=== PATIENT | male | born 1950 | race Two or more races ===

== ENCOUNTER 2025-06-21 12:16 | Inpatient (IN) | payer OTHER ==
[~2025-06-21] VITALS: Ht 157.5 cm; Wt 52.0 kg
--- NOTE | 2025-06-21 12:43 | ED.PDOC ---
History of Present Illness HPI Comments This is a 74 year-old male who presents to the ED with a chief complaint of mild epigastric abdominal pain with associated symptoms of weakness as of today. Patient reports being sent to the ED by his PCP after observed abnormal Hemoglobin levels. Patient additionally states that he had a stent placed X1 wee k ago, took nitroglycerin medication as prescribed, and is now experiencing weakness. Patient has no further complaints at this time and otherwise denies dizziness, fever, chills, chest pain, headache, or body pain. Chief Complaint: Abnormal LAB's Time Seen by MD: 12:36 Reviewed Notes: Medications, Allergies Allergies: Coded Allergies: NO KNOWN ALLERGIES (Unverified , 06/21/25) Information Source: Patient Mode of Arrival: Ambulatory Severity: Moderate Timing: Hours Duration: Since onset Past Medical History PAST MEDICAL HISTORY: Denies Surgical History: Denies all surgeries Family History Family History: Reviewed,noncontributory to illness, No family hx of Cancer, No family hx of DM, No family hx of Heart killian, No family hx of HTN, No family hx ofKidney killian, No family hx of Liver killian, No family hx of Lung killian, No family hx of Stroke Social History Smoker: Non-Smoker Alcohol: Denies ETOH Use Drugs: Denies Drug Use Lives In: Home Constitutional: reports: weakness; denies: chills, diaphoresis, fatigue, fever, malaise, sweats, others EENTM: denies: blurred vision, double vision, ear bleeding, ear discharge, ear drainage, ear pain, ear ringing, eye pain, eye redness, hearing loss, mouth pa in, mouth swelling, nasal discharge, nose bleeding, nose congestion, nose pain, photophobia, tearing, throat pain, throat swelling, voice changes, others Respiratory: denies: cough, hemoptysis, orthopnea, SOB at rest, shortness of breath, SOB with excertion, stridor, wheezing, others Cardiovascular: denies: chest pain, dizzy spells, diaphoresis, Dyspnea on exertion, edema, irregular heart beat, left arm pain, lightheadedness, palpitations, PND, syncope, others Gastrointestinal: reports: abdominal pain; denies: abdomen distended, blood streaked bowels, constipated, diarrhea, dysphagia, difficulty swallowing, hematemesis, melena, nausea, poor appetite, poor fluid intake, rectal bleeding, rectal pain, vomiting, others Genitourinary: denies: burning, dysuria, flank pain, frequency, hematuria, incontinence, penile discharge, penile sore, pain, testicle pain, testicle swelling, urgency, others Neurological: denies: dizziness, fainting, headache, left sided numbness, left sided weakness, numbness, paresthesia, pre-existing deficit, right sided numbness, right sided weakness, seizure, speech problems, tingling, tremors, weakness, others Musculoskeletal: denies: back pain, gout, joint pain, joint swelling, muscle pain, muscle stiffness, neck pain, others Integumetry: denies: bruises, change in color, change in hair/nails, dryness, laceration, lesions, lumps, rash, wounds, others Allergic/Immunocompromised: denies: Difficulty Healing, Frequent Infections, Hives, Itching, others Hematologic/Lymphatic: denies: anemia, blood clots, easy bleeding, easy bruising, swollen glands, others Endocrine: denies: excessive hunger, excessive sweating, excessive thirst, excessive urination, flushing, intolerance to cold, intolerance to heat, unexplained weight gain, unexplained weight loss, others Psychiatric: denies: anxiety, bipolar disorder, depression, hopeless, panic disorder, schizophrenia, sleepless, suicidal, others All Other Systems: Reviewed and Negative Physical Exam General Appearance: Moderate Distress HEENT: Normal ENT Inspection, Pharynx Normal, TMs Normal Neck: Full Range of Motion, Non-Tender, Normal, Normal Inspection Respiratory: Chest Non-Tender, Lungs Clear, No Accessory Muscle Use, No Respiratory Distress, Normal Breath Sounds Cardiovascular: No Edema, No JVD, No Murmur, No Gallop, Normal Peripheral Pulses, Regular Rate/Rhythm Breast Exam: Deferred Gastrointestinal: No Organomegaly, Non Tender, No Pulsatile Mass, Normal Bowel Sounds, Soft Genitalia: Deferred Pelvic: Deferred Rectal: Deferred Extremities: No calf tenderness, Normal capillary refill, Normal inspection, Normal range of motion, Non-tender, No pedal edema Musculoskeletal : Apperance: Normal Neurologic: Alert, associate principal II-XII nml as Tested, No Motor Deficits, Normal Affect, Normal Mood, No Sensory Deficits Cerebellar Function: Normal Reflexes: Normal Skin: Dry, Normal Color, Warm Peripheral Pulses: 3+ Radial (R), 3+ Radial (L) Lymphatic: No Adenopathy Was a procedure done? Was a procedure done?: No Differential Dx Considerations may include: Anxiety, Food Poisoning, Constipation X-Ray, Labs, Meds, VS Vital Signs Date Time Temp Pulse Resp B/P (MAP) Pulse Ox O2 Delivery O2 Flow Rate FiO2 06/21/25 12:18 97.6 81 16 113/60 100 97.6 Patient alert. Complaining of chest pain. Vitals stable. Answering questions. EKG reviewed does not show any acute changes. Possibly has a anemia. Explained to the patient. Continue monitoring. Images Reviewed?: Images reviewed and evaluated by me Time of 1ST Reevaluation: 13:22 Reevaluation 1ST: Unchanged Patient Education/Counseling: Diagnosis, Treatment Family Education/Counseling: Diagnosis, Treatment SEPSIS Sepsis Screen Date sepsis recognized/suspect: Jun 21, 2025 Time Sepsis recognized/suspect: 1221 Recent Procedure: No On Antibiotic Therapy: No Respiratory Rate >20: No Heart Rate >90: No Temp<36 C (96.8 F) or >38.3 C: No SBP <90 or MAP <65 mmHG: No New Acute Mental Status Change: No Is the patient on CPAP, BIPAP,: No Physician Orders Complete Blood Count (06/21/25 12:20) Basic Metabolic Panel (06/21/25 12:20) Vital Signs Date Time Temp Pulse Resp B/P (MAP) Pulse Ox O2 Delivery O2 Flow Rate FiO2 06/21/25 12:18 97.6 81 16 113/60 100 97.6 Departure 1 Departure Time of Disposition: 12:48 Impression: Primary Impression: Chest pain of unknown etiology Disposition: ADMITTED INPATIENT Admit to: Med Surg Condition: Guarded Critical Care Note Critical Care Time?: Yes (90 min-critical care time only) Stability Stability form required: No Heart Score Heart Score: Heart Score Response (Comments) Value History Slightly Suspicious 0 EKG N/A 0 Age >65 2 Risk Factors No known risk factors 0 Troponin Normal limit 0 Total 2 I personally scribed for EZRA PHAN MD ([email or web address]) on 06/21/25 at 12:42. Electronically submitted by Becki Guevara ([email or web address]). EZRA PHAN MD Jun 21, 2025 12:42
[2025-06-21 13:18] LABS: Hematocrit 27.5 % (41.0-53.0); Hemoglobin 9.3 g/dL (13.5-17.5); Mean Corpuscular Hemoglobin 33.4 pg (28.0-32.0); Mean Corpuscular Volume 98.9 fL (80.0-100.0); Nucleated Red Blood Cells % 0.0 %
[2025-06-21] MEDS: NITROGLYCERIN 0.4 MG SL TAB SL ONE (13:21)
[2025-06-21 13:26] LABS: Potassium 4.5 mmol/L (3.5-5.1); Sodium 141 mmol/L (136-145)
[2025-06-21 13:27] LABS: Anion Gap 8 (5-15); Carbon Dioxide 24 mmol/L (20-31)
[2025-06-21 13:28] LABS: Calcium 8.4 mg/dL (8.7-10.4); Chloride 109 mmol/L (98-107)
[2025-06-21 13:32] LABS: BUN/Creatinine Ratio 14.7 (10.0-20.0); Blood Urea Nitrogen 20 mg/dL (9-23); Glucose 99 mg/dL (74-106)
[2025-06-21 14:53] VITALS: PULSE 75; RESP 18; O2SAT 97
[2025-06-21] MEDS ORDERED: NITROGLYCERIN 0.4 MG SL TAB SL PRN (16:00)
[2025-06-21] MEDS ORDERED: ACETAMINOPHEN 325 MG TAB PO PRN (16:00)
[2025-06-21] MEDS ORDERED: MORPHINE SULFATE INJ 2 MG/ml SYRG IV PRN (16:00)
--- NOTE | 2025-06-21 16:11 | DVHHPRES ---
History of Present Illness Resident Creating Document: RUFINA PATEL RESIDENT History of Present Illness Ron Miller is a 74-year old male with past medical history of CAD s/p PTCA, hyperlipidemia who presented to the ED on being recommended by his PCP as he had low hemoglobin level of 7.8. The patient mentions he has had generalized body weakness for 1 week. He denies any weight loss, blood in the stool, dark stools, fever or chills. The patient mentions that he has a recent history of chest pain 1 week back for which he took nitroglycerin which resolved the symptoms. Past medical history: Hyperlipidemia, coronary artery disease Past surgical history: PTCA 5 years ago Social & Personal history: Lives at home with family Smokin pack-year smoking history, quit smoking 20 years back Alcohol: Rare consumption Drugs: Denies Allergies: No known allergies Cardiovascular: CAD Past Surgical History: Other Smoke: Quit ALCOHOL: rare Drugs: None Lives: with Family Review of Systems Review of Systems Patient seen and examined at bedside. Patient is alert and oriented to time, place person and responding to all questions. Patient mentions he has generalized body weakness. Eyes: No Pain, No Vision change, No Conjunctivae inflammation, No Eyelid inflammation, No Redness ENT: No Ear pain, No Ear discharge, No Nose pain, No Nose discharge, No Nose congestion, No Mouth pain, No Mouth swelling, No Throat pain, No Throat swelling Cardiovascular: No Chest Pain, No Palpitations, No Orthopnea, No Paroxysmal No Dyspnea, No Edema, No Lt Headedness Respiratory: No Cough, No Dry, No Shortness of breath, No SOB with exertion, No Wheezing, No Hemoptysis, No Pleuritic Pain, No Sputum Gastrointestinal: No Nausea, No Vomiting, No Abdominal Pain, No Diarrhea, No Constipation, No Melena, No Hematochezia Genitourinary: No Dysuria, No Frequency, No Incontinence, No Hematuria, No Retention Allergies: Coded Allergies: NO KNOWN ALLERGIES (Unverified , 06/21/25) Exam Vital Signs Vital Signs Date Time Temp Pulse Resp B/P (MAP) Pulse Ox O2 Delivery O2 Flow Rate FiO2 06/21/25 14:53 97.8 75 18 92/57 (69) 97 97.8 06/21/25 14:53 Room Air* 0 21 Exam General Appearance: Cooperative. Well developed. Well nourished. NAD Head Exam: Normal inspection,pale conjunctivae Neck Exam: Normal inspection. Non-tender. Normal alignment Pulmonary/Respiratory: Chest non-tender. Clear bilateral breath sounds, no crackles, no wheezing. Cardiovascular/Chest: Regular rate and rhythm. No murmurs. No JVD. Peripheral Pulses: 2+ Radial (R). 2+ Radial (L). 2+ Pedal (R). 2+ Pedal (L) Abdominal Exam: Normal bowel sounds. Soft. normal abdomen, no visible veins, Nontender. No hepatospenomegaly. No masses Ankle Exam: Negative ankle edema Lower extremities: Negative lower extremity edema Neuro/Mental Status: A&O x4. Coherent. Thoughts/Psych: Normal thought pattern. Appropriate mood and affect. Good judgement and insight Skin Exam: Normal inspection. Normal color. Warm. Dry Labs/Xrays Labs Test 06/21/25 14:07 06/21/25 12:59 Range/Units Troponin I High Sensitivity < 3 L </=54 ng/L White Blood Count 5.7 4.4-10.8 10^3/uL Red Blood Count 2.78 L 4.5-5.90 10^6/uL Hemoglobin 9.3 L 13.5-17.5 g/dL Hematocrit 27.5 L 41.0-53.0 % Mean Corpuscular Volume 98.9 80.0-100.0 fL Mean Corpuscular Hemoglobin 33.4 H 28.0-32.0 pg Mean Corpuscular Hemoglobin Concent 33.8 32.0-36.0 g/dL Red Cell Distribution Width 15.1 H 11.8-14.3 % Platelet Count 299 140-450 10^3/uL Mean Platelet Volume 6.8 L 6.9-10.8 fL Neutrophils (%) (Auto) 69.8 37.0-80.0 % Lymphocytes (%) (Auto) 21.1 10.0-50.0 % Monocytes (%) (Auto) 6.3 0.0-12.0 % Eosinophils (%) (Auto) 2.1 0.0-7.0 % Basophils (%) (Auto) 0.7 0.0-2.0 % Neutrophils # (Auto) 4.0 1.6-8.6 10 ^3/uL Lymphocytes # (Auto) 1.2 0.4-5.4 10 ^3/uL Monocytes # (Auto) 0.4 0-1.3 10 ^3/uL Eosinophils # (Auto) 0.1 0-0.8 10 ^3/uL Basophils # (Auto) 0 0-0.2 10 ^3/uL Nucleated Red Blood Cells 0.0 % Sodium Level 141 136-145 mmol/L Potassium Level 4.5 3.5-5.1 mmol/L Chloride Level 109 H 98-107 mmol/L Carbon Dioxide Level 24 20-31 mmol/L Anion Gap 8 5-15 Blood Urea Nitrogen 20 9-23 mg/dL Creatinine 1.36 H 0.700-1.30 mg/dL Glomerular Filtration Rate Calc 55 >90 mL/min BUN/Creatinine Ratio 14.7 10.0-20.0 Serum Glucose 99 74-106 mg/dL Calcium Level 8.4 L 8.7-10.4 mg/dL SEPSIS Sepsis Screen Date sepsis recognized/suspect: Jun 21, 2025 Time Sepsis recognized/suspect: 1452 Recent Procedure: No On Antibiotic Therapy: No Respiratory Rate >20: No Heart Rate >90: No Temp<36 C (96.8 F) or >38.3 C: No SBP <90 or MAP <65 mmHG: No New Acute Mental Status Change: No Is the patient on CPAP, BIPAP,: No Physician Orders Admit (06/21/25 15:56) Allergies (06/21/25 15:56) Code Status (06/21/25 15:56) Acetaminophen Tablet (Tylenol Tablet) (06/21/25 16:00) Enoxaparin Sodium (Lovenox) (06/22/25 10:00) Fall Risk Precautions In Place QSHIFT (06/21/25 15:56) Complete Blood Count (06/22/25 04:00) Comprehensive Metabolic Panel (06/22/25 04:00) Cardiac Diet-2gna,Lofat,Lochol (06/21/25 Dinner) Echo 2d Mode Cardiac Dop (06/21/25 15:56) Condition: Unstable (06/21/25 15:56) Nitroglycerin Sublingual (Ntrostat Subli (06/21/25 16:00) Morphine Sulfate Injection (06/21/25 16:00) Oxygen By Nasal Cannula (06/21/25 15:56) Stat Ekg For Chest Pain (06/21/25 15:56) Notify Md Of Changes From Base (06/21/25 15:56) Morphology Teacher For 24 Hours (06/21/25 15:56) Emergency Dysrhythmia Protocol (06/21/25 15:56) Rhythm Strips Once Every Shift (06/21/25 15:56) Iron Panel (06/21/25 16:00) Ferritin (06/21/25 16:00) Thyroid Stimulating Hormone (06/21/25 16:00) Urinalysis (06/21/25 16:00) B-Type Natriuretic Peptide (06/21/25 16:00) Chest Xray 1 View (06/21/25 16:00) NS (06/21/25 16:15) Aspirin Tablet (06/22/25 10:00) Aspirin Tablet (06/21/25 16:15) Clopidogrel Bisulfate (Plavix) (06/22/25 10:00) Atorvastatin (Lipitor) (06/21/25 22:00) Lipid Panel (06/21/25 16:09) Vitamin D, 25-Hydroxy (06/21/25 16:09) Vitamin B12 (06/21/25 16:09) Vital Signs Date Time Temp Pulse Resp B/P (MAP) Pulse Ox O2 Delivery O2 Flow Rate FiO2 06/21/25 14:53 97.8 75 18 92/57 (69) 97 97.8 06/21/25 14:53 75 18 97 Room Air* 0 21 06/21/25 14:31 76 16 98 Room Air 06/21/25 14:31 102/55 06/21/25 14:31 97.9 76 16 102/55 (71) 98 97.9 06/21/25 13:21 122/66 06/21/25 12:18 97.6 81 16 113/60 100 97.6 Laboratory Tests Test 06/21/25 12:59 White Blood Count 5.7 10^3/uL (4.4-10.8) Medications Medications Dose Ordered Sig/Nannette Route Start Time Stop Time Status Last Admin Dose Admin Aspirin 325 mg ONCE ONCE PO 06/21/25 13:00 06/21/25 13:01 DC 06/21/25 13:20 325 MG Nitroglycerin 0.4 mg ONCE ONCE SL 06/21/25 13:00 06/21/25 13:01 DC 06/21/25 13:21 0.4 MG Assessment/Plan Assessment/Plan # Acute normocytic anemia -Hb on admission is 9.3 -ordered iron panel, ferritin #SHELLEY, likely due to VMN -NS given at 60ml/hr -avoid nephrotoxic agents -monitor BMP # History of Coronary artery disease s/p PTCA -continue aspirin 81mg po daily -continue plavix 75mg po daily -ordered Echo # Hyperlipidemia -continue lipitor 40mg po hs # Vitamin D deficiciency -given Vitamin D 50,000 units daily for 1 week DVT prophylaxis: lovenox 40mg sc daily Goals of care: Full code, discussed for >16 minutes Plan discussed with Dr Barber Plan discussed with: Patient, Son My Orders Orders - RUFINA PATEL RESIDENT Procedure Category Date Status Time Admit ADMIT 06/21/25 Transmitted 15:56 Allergies SARA 06/21/25 In Process 15:56 Code Status CODE 06/21/25 Transmitted 15:56 Acetaminophen Tablet PHA 06/21/25 In Process (Tylenol Tablet) 16:00 Enoxaparin Sodium PHA 06/22/25 Logged (Lovenox) 10:00 Fall Risk Precautions SARA 06/21/[address] 15:56 Complete Blood Count LAB 06/22/25 Verified 04:00 Comprehensive LAB 06/22/25 Verified Metabolic Panel 04:00 Cardiac DIET 06/21/25 Transmitted Diet-2gna,Lofat,Lochol Dinner Echo 2d Mode Cardiac US 06/21/25 Logged DOP 15:56 Condition: Unstable [facility] 06/21/25 In Process 15:56 Nitroglycerin PHA 06/21/25 Logged Sublingual (Ntrostat 16:00 Morphine Sulfate PHA 06/21/25 Logged Injection 16:00 Oxygen By Nasal RT 06/21/25 Transmitted Cannula 15:56 Stat Ekg For Chest SARA 06/21/25 In Process Pain 15:56 Notify Of Changes [facility] 06/21/25 In Process From Base 15:56 Morphology Teacher For SARA 06/21/25 In Process 24 Hours 15:56 Emergency Dysrhythmia SARA 06/21/25 In Process Protocol 15:56 Rhythm Strips Once [facility] 06/21/25 In Process Every Shift 15:56 Iron Panel LAB 06/21/25 Logged 16:00 Ferritin LAB 06/21/25 Logged 16:00 Thyroid Stimulating LAB 06/21/25 Logged Hormone 16:00 Urinalysis LAB 06/21/25 Logged 16:00 B-Type Natriuretic LAB 06/21/25 Logged Peptide 16:00 Chest Xray 1 View XY 06/21/25 Logged 16:00 NS PHA 06/21/25 Transmitted 16:15 Aspirin Tablet PHA 06/22/25 Transmitted 10:00 Aspirin Tablet PHA 06/21/25 Transmitted 16:15 Clopidogrel Bisulfate PHA 06/22/25 Transmitted (Plavix) 10:00 Atorvastatin (Lipitor) PHA 06/21/25 Transmitted 22:00 Lipid Panel LAB 06/21/25 Transmitted 16:09 Vitamin D, 25-Hydroxy LAB 06/21/25 Transmitted 16:09 Vitamin B12 LAB 06/21/25 Transmitted 16:09 Date of Service: Jun 21, 2025 Billing Provider: CLEM BARBER MD Common Visit Codes: [id number] INP/OBS CARE (HIGH) RUFINA PATEL RESIDENT Jun 21, 2025 16:11
--- NOTE | 2025-06-21 16:45 | DVH ---
EXAM: XY CHEST XRAY 1 VIEW HISTORY: chest pain TECHNIQUE: 1 view of the chest COMPARISON: None FINDINGS/IMPRESSION: LUNGS: No pleural effusion, consolidation, or pneumothorax. MEDIASTINUM: Unremarkable. BONES: No acute osseous abnormality. OTHER: None.
[2025-06-21 16:47] LABS: Triglycerides 112 mg/dL (< 150)
[2025-06-21 16:49] LABS: Cholesterol 120 mg/dL (< 200); HDL Cholesterol 50 mg/dL (40-59); Iron 76.0 ug/dL (65-175)
[2025-06-21 16:52] LABS: Total Iron Binding Capacity 287.0 ug/dL (250-425)
[2025-06-21] MEDS: SODIUM CHLORIDE 0.9% 1,000 ML IV SCH (17:05)
[2025-06-21 17:11] LABS: Urine Protein, UAD Negative (Negative)
[2025-06-21 17:56] VITALS: BP 140/75; PULSE 59; RESP 18; TEMP 97.5; O2SAT 99
[2025-06-21 21:00] VITALS: BP 109/73; PULSE 75; RESP 15; TEMP 97.6; O2SAT 100
[2025-06-21] MEDS: ATORVASTATIN 20 MG TAB PO SCH (21:55)
[2025-06-22 01:00] VITALS: BP 115/78; PULSE 112; RESP 17; TEMP 97.9; O2SAT 97
[2025-06-22 05:00] VITALS: BP 134/76; PULSE 64; RESP 16; TEMP 97.7; O2SAT 98
[2025-06-22 07:39] LABS: Hematocrit 26.0 % (41.0-53.0); Hemoglobin 8.8 g/dL (13.5-17.5); Mean Corpuscular Hemoglobin 33.5 pg (28.0-32.0); Mean Corpuscular Volume 98.7 fL (80.0-100.0); Nucleated Red Blood Cells % 0.0 %
[2025-06-22 07:47] LABS: Alanine Aminotransferase 13 U/L (7-40); Albumin 3.6 g/dL (3.2-4.8); Alkaline Phosphatase 82 U/L (46-116); Anion Gap 10 (5-15); BUN/Creatinine Ratio 17.2 (10.0-20.0); Blood Urea Nitrogen 23 mg/dL (9-23); Carbon Dioxide 23 mmol/L (20-31); Glucose 79 mg/dL (74-106); Potassium 4.3 mmol/L (3.5-5.1); Sodium 142 mmol/L (136-145); Total Protein 5.9 g/dL (5.7-8.2)
[2025-06-22 07:48] LABS: Bilirubin, Total 0.5 mg/dL (0.2-1.0)
[2025-06-22 07:49] LABS: Calcium 8.0 mg/dL (8.7-10.4); Chloride 109 mmol/L (98-107)
[2025-06-22 08:41] VITALS: BP 132/68; PULSE 56; RESP 18; TEMP 98.1; O2SAT 98
[2025-06-22] MEDS: ERGOCALCIFEROL 50,000 UNIT(1.25MG) CAP PO SCH (10:21)
[2025-06-22] MEDS: CLOPIDOGREL BISULFATE 75 MG TAB PO SCH (10:21)
[2025-06-22] MEDS: ENOXAPARIN SOD 40 MG/0.4 ML SYRINGE SC SCH (10:22)
[2025-06-22 13:00] VITALS: BP 123/76; PULSE 58; RESP 18; TEMP 98; O2SAT 99
--- NOTE | 2025-06-22 13:56 | DVHSR ---
APPROVED REPORT EXAM: Two-dimensional and M-mode echocardiogram with Doppler and color Doppler. Blood Pressure: 132/68 mmHg INDICATION Chest Pain RISK FACTORS Height: 5' 2", Weight: 119 DIMENSIONS LVDd4.5 (3.8-5.7cm)LA (2D)3.7 (1.9-4.0cm)Aortic Root3.5 (2.0-3.7cm) LVDs3.3 (2.5-4.0cm)LA (MM) (1.9-4.0cm)Aortic Cusp Exc1.7 (1.5-2.0cm) EF (%) 55.0 (55-70%)Rt. Atrium3.8 (1.9-4.0cm)Asc. Aorta cm IVSd1.0 (0.7-1.1cm)RV (D) (1.8-2.4cm) PWd0.9 (0.7-1.1cm) Mitral Valve MitralMitral Stenosis E wave1.00m/sMV Mean GR.mmHg A wave1.20m/sMV Peak GR.mmHg E/A ratio0.82D MVAcm2 Aortic Valve Aortic ValveAortic Stenosis V11.00m/Debra Mean GR.3mmHg V21.30m/Debra Peak GR.7mmHg LVOT Diameter2.3 (1.8-2.4cm)Doppler AVA3.19cm2 Pulmonic Valve V20.60m/s Tricuspid Valve TR Velocity2.50m/s [id number] Conclusion lvef 65% normal rv function left atrium enlarged moderaet no severe valve abnormalities noted mild to moderate tricupsid regurg
--- NOTE | 2025-06-22 15:33 | DVHPNRES ---
Progress Note Date Seen: Jun 22, 2025 Resident Creating Document: RUFINA PATEL RESIDENT Medical Necessity Reason Pt with a Central, PICC or Fol: No Subjective Review of Systems Ron Miller is a 74-year old male with past medical history of CAD s/p PTCA, hyperlipidemia who presented to the ED on being recommended by his PCP as he had low hemoglobin level of 7.8. The patient mentions he has had generalized body weakness for 1 week. He denies any weight loss, blood in the stool, dark stools, fever or chills. The patient mentions that he has a recent history of chest pain 1 week back for which he took nitroglycerin which resolved the symptoms. Past medical history: Hyperlipidemia, coronary artery disease Past surgical history: PTCA 5 years ago Social & Personal history: Lives at home with family Smokin pack-year smoking history, quit smoking 20 years back Alcohol: Rare consumption Drugs: Denies Allergies: No known allergies Cardiovascular: CAD Past Surgical History: Other Smoke: Quit ALCOHOL: rare Drugs: None Lives: with Family Patient seen and examined at bedside. Patient is alert and oriented to time, place person and responding to all questions. Patient mentions he has generalized body weakness. Eyes: No Pain, No Vision change, No Conjunctivae inflammation, No Eyelid inflammation, No Redness ENT: No Ear pain, No Ear discharge, No Nose pain, No Nose discharge, No Nose congestion, No Mouth pain, No Mouth swelling, No Throat pain, No Throat swelling Cardiovascular: No Chest Pain, No Palpitations, No Orthopnea, No Paroxysmal No Dyspnea, No Edema, No Lt Headedness Respiratory: No Cough, No Dry, No Shortness of breath, No SOB with exertion, No Wheezing, No Hemoptysis, No Pleuritic Pain, No Sputum Gastrointestinal: No Nausea, No Vomiting, No Abdominal Pain, No Diarrhea, No Constipation, No Melena, No Hematochezia Genitourinary: No Dysuria, No Frequency, No Incontinence, No Hematuria, No Retention Allergies: Coded Allergies: NO KNOWN ALLERGIES (Unverified , 06/21/25) 06/22/25- patient was seen at bedside today. Labs and charts were reviewed. His hemoglobin today was 8.8. Creatinine improved from 1.36 yesterday to 1.34 today. We will continue to give NS at 60 mL/hour and monitor hemoglobin tomorrow morning. Possible discharge for tomorrow was discussed with the patient. Objective vital signs Vital Sign Date Time Temp Pulse Resp B/P (MAP) Pulse Ox O2 Delivery O2 Flow Rate FiO2 06/22/25 13:00 98.0 58 18 123/76 (92) 99 98.0 06/21/25 16:46 Room Air* 0 21 Total Intake and Output 06/21/25 06/21/25 06/22/25 15:00 23:00 07:00 Intake Total 400 ml 0 ml Balance 400 ml 0 ml medications Current Medications Medications Dose Ordered Sig/Nannette Route Start Time Stop Time Status Last Admin Dose Admin Acetaminophen 325 mg Q4HP PRN PO 06/21/25 16:00 Enoxaparin Sodium 40 mg DAILY SC 06/22/25 10:00 06/22/25 10:22 40 MG Nitroglycerin 0.4 mg Q5MINP PRN SL 06/21/25 16:00 Morphine Sulfate 2 mg Q30M PRN IV 06/21/25 16:00 Sodium Chloride 1,000 ml @ 60 mls/hr [id number] IV 06/21/25 16:15 06/22/25 10:21 60 MLS/HR Aspirin 81 mg DAILY PO 06/22/25 10:00 06/22/25 10:21 81 MG Clopidogrel Bisulfate 75 mg DAILY PO 06/22/25 10:00 06/22/25 10:21 75 MG Atorvastatin Calcium 40 mg HS PO 06/21/25 22:00 06/21/25 21:55 40 MG Ergocalciferol 50,000 unit Q7D PO 06/22/25 08:30 06/22/25 10:21 50,000 UNIT Examination General Appearance: Cooperative. Well developed. Well nourished. NAD Head Exam: Normal inspection,pale conjunctivae Neck Exam: Normal inspection. Non-tender. Normal alignment Pulmonary/Respiratory: Chest non-tender. Clear bilateral breath sounds, no crackles, no wheezing. Cardiovascular/Chest: Regular rate and rhythm. No murmurs. No JVD. Peripheral Pulses: 2+ Radial (R). 2+ Radial (L). 2+ Pedal (R). 2+ Pedal (L) Abdominal Exam: Normal bowel sounds. Soft. normal abdomen, no visible veins, Nontender. No hepatospenomegaly. No masses Ankle Exam: Negative ankle edema Lower extremities: Negative lower extremity edema Neuro/Mental Status: A&O x4. Coherent. Thoughts/Psych: Normal thought pattern. Appropriate mood and affect. Good judgement and insight Skin Exam: Normal inspection. Normal color. Warm. Dry laboratory and microbiology Laboratory Tests 06/22/25 05:07 Test 06/22/25 05:07 Range/Units Serum Glucose 79 74-106 mg/dL Labs and/or images reviewed: Labs reviewed by me, Image(s) reviewed by me Problem List/Assessment/Plan Problem List/Assessment/Plan # Acute normocytic anemia -Hb today was 8.8 -iron panel, ferritin are within normal limits -monitor hemoglobin #SHELLEY, likely due to VMN -NS given at 60ml/hr -avoid nephrotoxic agents -monitor BMP # History of Coronary artery disease s/p PTCA -continue aspirin 81mg po daily -continue plavix 75mg po daily -Echo LVEF 65% normal rv function left atrium enlarged moderately no severe valve abnormalities noted mild to moderate tricupsid regurg # Hyperlipidemia -continue lipitor 40mg po hs # Vitamin D deficiciency -given Vitamin D 50,000 units daily for 1 week DVT prophylaxis: lovenox 40mg sc daily Goals of care: Full code, discussed for >16 minutes Plan discussed with Dr Perkins Plan discussed with: Patient My Orders My Orders Orders - RUFINA PATEL RESIDENT Procedure Category Date Status Time Admit ADMIT 06/21/25 Transmitted 15:56 Allergies SARA 06/21/25 In Process 15:56 Code Status CODE 06/21/25 Transmitted 15:56 Acetaminophen Tablet PHA 06/21/25 In Process (Tylenol Tablet) 16:00 Enoxaparin Sodium PHA 06/22/25 In Process (Lovenox) 10:00 Fall Risk Precautions SARA 06/21/[address] 15:56 Cardiac DIET 06/21/25 Transmitted Diet-2gna,Lofat,Lochol Dinner Condition: Unstable SARA 06/21/25 In Process 15:56 Nitroglycerin PHA 06/21/25 In Process Sublingual (Ntrostat 16:00 Morphine Sulfate PHA 06/21/25 In Process Injection 16:00 Oxygen By Nasal RT 06/21/25 Transmitted Cannula 15:56 Stat Ekg For Chest SARA 06/21/25 In Process Pain 15:56 Notify Of Changes SARA 06/21/25 In Process From Base 15:56 Gin Operator For SARA 06/21/25 In Process 24 Hours 15:56 Emergency Dysrhythmia SARA 06/21/25 In Process Protocol 15:56 Rhythm Strips Once SARA 06/21/25 In Process Every Shift 15:56 Chest Xray 1 View XY 06/21/25 Resulted 16:00 Sodium Chloride 0.9% PHA 06/21/25 In Process 16:15 Aspirin Tablet PHA 06/22/25 In Process 10:00 Clopidogrel Bisulfate PHA 06/22/25 In Process (Plavix) 10:00 Atorvastatin (Lipitor) PHA 06/21/25 In Process 22:00 Echo 2d Mode Cardiac US 06/22/25 Resulted DOP 15:56 Date of Service: Jun 22, 2025 Billing Provider: AMANDA PERKINS MD Common Visit Codes: [id number] INP/OBS CARE(HIGH) Date of Service: Jun 22, 2025 Billing Provider: AMANDA PERKINS MD Common Visit Codes: [id number] INP/OBS CARE(HIGH) RUFINA PATEL RESIDENT Jun 22, 2025 15:33 AMANDA PERKINS MD Jun 22, 2025 22:48
[2025-06-22 16:39] VITALS: BP 104/104; PULSE 77; RESP 18; TEMP 98.7; O2SAT 98
[2025-06-22 21:00] VITALS: BP 96/60; PULSE 68; RESP 18; TEMP 98.4; O2SAT 98
[2025-06-22] MEDS: DOCUSATE SOD 100 MG CAP PO PRN (21:10)
[2025-06-23] VITALS (7 sets, daily range): BP systolic 94–135; BP diastolic 58–85; PULSE 57–89; RESP 18–20; TEMP 98–98.6; O2SAT 96–99
[2025-06-23 06:39] LABS: Hematocrit 27.0 % (41.0-53.0); Hemoglobin 9.2 g/dL (13.5-17.5); Mean Corpuscular Hemoglobin 33.9 pg (28.0-32.0); Mean Corpuscular Volume 99.1 fL (80.0-100.0); Nucleated Red Blood Cells % 0.1 %
[2025-06-23 06:44] LABS: Anion Gap 8 (5-15); Carbon Dioxide 24 mmol/L (20-31); Potassium 4.5 mmol/L (3.5-5.1); Sodium 141 mmol/L (136-145)
[2025-06-23 06:50] LABS: BUN/Creatinine Ratio 18.0 (10.0-20.0); Blood Urea Nitrogen 20 mg/dL (9-23); Glucose 91 mg/dL (74-106)
[2025-06-23 06:51] LABS: Calcium 8.4 mg/dL (8.7-10.4); Chloride 109 mmol/L (98-107)
[2025-06-23] MEDS: POLYETHYLENE GLYCOL 17 GM PWDR PO ONE (07:01)
--- NOTE | 2025-06-23 14:22 | DVHPNRES ---
Progress Note Date Seen: Jun 23, 2025 Resident Creating Document: BLAYNE SWEENEY RESIDENT Has the PT tested + for MRSA If YES, has PT been informed?: No Medical Necessity Reason Pt with a Central, PICC or Fol: No Subjective Review of Systems Ron Miller is a 74-year old male with past medical history of CAD s/p PTCA, hyperlipidemia who presented to the ED on being recommended by his PCP as he had low hemoglobin level of 7.8. The patient mentions he has had generalized body weakness for 1 week. He denies any weight loss, blood in the stool, dark stools, fever or chills. The patient mentions that he has a recent history of chest pain 1 week back for which he took nitroglycerin which resolved the symptoms. Patient seen and examined at bedside. Patient denies fever/chills, abdominal tenderness, vomiting or any possible source of bleeding at this time. Hemoglobin has been stable throughout hospitalization, today is 9.2. Iron panel and ferritin in the normal range but stool occult test came back positive. GI was consulted for possible colonoscopy since the patient has been having acute on chronic anemia. GI consult was placed. Otherwise patient is grossly well overall. ROS Constitutional: Denies weight loss, fever and chills. HEENT: Denies changes in vision and hearing. Respiratory: Denies shortness of breath and cough Cardiovascular: Denies chest discomfort or palpitations GI: Denies abdominal pain, nausea, vomiting and diarrhea. : Denies dysuria and urinary frequency. Musculoskeletal: Denies myalgias and joint pain Skin: Denies rash and pruritus. Neurological: Denies dizziness, headache, vision or hearing problems Objective vital signs Vital Sign Date Time Temp Pulse Resp B/P (MAP) Pulse Ox O2 Delivery O2 Flow Rate FiO2 06/23/25 13:17 98.1 73 18 103/60 (74) 99 98.1 06/21/25 16:46 Room Air* 0 21 Total Intake and Output 06/22/25 06/22/25 06/23/25 15:00 23:00 07:00 Intake Total 400 ml 1280 ml 600 ml Balance 400 ml 1280 ml 600 ml medications Current Medications Medications Dose Ordered Sig/Nannette Route Start Time Stop Time Status Last Admin Dose Admin Acetaminophen 325 mg Q4HP PRN PO 06/21/25 16:00 Nitroglycerin 0.4 mg Q5MINP PRN SL 10/24/25 16:00 Morphine Sulfate 2 mg Q30M PRN IV 06/21/25 16:00 Sodium Chloride 1,000 ml @ 60 mls/hr [id number] IV 06/21/25 16:15 06/23/25 01:35 60 MLS/HR Aspirin 81 mg DAILY PO 06/22/25 10:00 06/23/25 09:12 81 MG Clopidogrel Bisulfate 75 mg DAILY PO 06/22/25 10:00 06/23/25 09:11 75 MG Atorvastatin Calcium 40 mg HS PO 06/21/25 22:00 06/22/25 20:30 40 MG Ergocalciferol 50,000 unit Q7D PO 06/22/25 08:30 06/22/25 10:21 50,000 UNIT Docusate Sodium 100 mg BIDPRN PRN PO 06/22/25 21:00 06/23/25 09:12 100 MG Examination Physical Examination General: Patient alert and oriented in person, place and time. Patient following commands. HEENT: Normocephalic, atraumatic, moist mucous membranes Respiratory/pulmonary: Clear lungs bilaterally, no associated crackles or wheezes. Cardiovascular: Normal heart sounds S1 and S2 with no associated murmurs Abdomen: Abdomen nondistended, there is no pain to palpation in any of the abdominal quadrants, no palpable masses. Extremities: There is no peripheral edema present at the lower extremities. Skin: No rashes or pruritus, there is no sacral edema present at this time. Neurological: Intact cranial nerves with no focal neurologic deficits laboratory and microbiology Laboratory Tests 06/23/25 05:25 Test 06/23/25 05:25 Range/Units Serum Glucose 91 74-106 mg/dL Problem List/Assessment/Plan Problem List/Assessment/Plan Assessment/Plan Acute normocytic anemia -Hb today was 9.3 -iron panel, ferritin are within normal limits -monitor hemoglobin -Stool occult came back positive -GI consult placed SHELLEY, likely due to VMN -NS given at 60ml/hr -Cr improving -avoid nephrotoxic agents -monitor BMP History of Coronary artery disease s/p PTCA -continue aspirin 81mg po daily -continue plavix 75mg po daily -Echo LVEF 65% normal rv function left atrium enlarged moderately no severe valve abnormalities noted mild to moderate tricupsid regurg Hyperlipidemia -continue lipitor 40mg po hs Vitamin D deficiciency -given Vitamin D 50,000 units daily for 1 week DVT prophylaxis: lovenox 40mg sc daily Goals of care discussed with the patient at bedside for 21 min, FULL CODE Plan discussed with Dr Perkins Plan discussed with: Patient My Orders My Orders Orders - BLAYNE SWEENEY Procedure Category Date Status Time * [facility] [employer] CONS 06/23/25 Transmitted 12:33 Date of Service: Jun 23, 2025 Billing Provider: AMANDA PERKINS MD Common Visit Codes: [id number] INP/OBS CARE(HIGH) BLAYNE SWEENEY Jun 23, 2025 14:21 AMANDA PERKINS MD Jun 23, 2025 23:31
--- NOTE | 2025-06-23 15:52 | DVHINCON2 ---
Date of service: Jun 23, 2025 Referring Physician Demetrius Reason for Consultation Occult blood positive anemia History of Present Illness The patient is a 74-year-old male with a past medical history significant for hyperlipidemia, coronary artery disease, prior history of PTCA, who was admitted with generalized weakness and body aches, referred to the emergency room by his primary care physician who noted a decreased hemoglobin. Patient was occult blood positive. Patient denies any melena hematochezia or hematemesis. Denies any abdominal pain dysphagia or odynophagia. GI consultation was warranted for evaluation for positive EGD format and colonoscopy. Past Medical History As above Past Surgical History Denies Family History: Patient reports no known family medical history. Family History Denies any GI diseases Social History Prior tobacco use No alcohol abuse No drug use Allergies: Coded Allergies: NO KNOWN ALLERGIES (Unverified , 06/21/25) Current Medications Current Medications Medications (Trade) Dose Ordered Sig/Nannette Route PRN Reason Start Time Stop Time Status Last Admin Docusate Sodium (Colace Capsule) 100 mg BIDPRN PRN PO FOR CONSTIPATION 06/22/25 21:00 06/23/25 09:12 Review of Systems Review of systems is limited given the language gap Patient has a history of prior PTCA known history of CAD Patient has anemia He has weakness but denies fevers or chills Denies chest pain or shortness of breath Denies diabetes Has hyperlipidemia Denies stroke or seizure Denies depression anxiety or psychosis Vital Signs Vital Signs Date Time Temp Pulse Resp B/P (MAP) Pulse Ox O2 Delivery O2 Flow Rate FiO2 06/23/25 13:17 98.1 73 18 103/60 (74) 99 98.1 06/21/25 16:46 Room Air* 0 21 Physical Exam General: Thin elderly male sitting up in bed HEENT: NC/AT EOMI PERRLA O/P clear, no JVD or cervical lymphadenopathy, no scleral icterus Heart: Regular rate and rhythm, no murmurs rubs or gallops Lungs: Clear to auscultation bilaterally, no wheezes rales or rhonchi Abdomen: Soft, nontender, nondistended, no organomegaly, normoactive bowel sounds Extremity: No clubbing cyanosis or edema, no rashes or bruises Neuro: Cranial nerves 2-12 grossly intact, moves all four extremities, no asterixis Labs/Diagnostic Data Labs Test 06/23/25 11:15 06/23/25 05:25 06/22/25 05:07 06/21/25 16:14 Range/Units Stool Occult Blood Positive Negative Stool Occult Blood Sample #3 Negative White Blood Count 5.5 4.4-10.8 10^3/uL Red Blood Count 2.72 L 4.5-5.90 10^6/uL Hemoglobin 9.2 L 13.5-17.5 g/dL Hematocrit 27.0 L 41.0-53.0 % Mean Corpuscular Volume 99.1 80.0-100.0 fL Mean Corpuscular Hemoglobin 33.9 H 28.0-32.0 pg Mean Corpuscular Hemoglobin Concent 34.2 32.0-36.0 g/dL Red Cell Distribution Width 15.0 H 11.8-14.3 % Platelet Count 257 140-450 10^3/uL Mean Platelet Volume 7.0 6.9-10.8 fL Neutrophils (%) (Auto) 69.3 37.0-80.0 % Lymphocytes (%) (Auto) 20.1 10.0-50.0 % Monocytes (%) (Auto) 6.6 0.0-12.0 % Eosinophils (%) (Auto) 3.2 0.0-7.0 % Basophils (%) (Auto) 0.8 0.0-2.0 % Neutrophils # (Auto) 3.8 1.6-8.6 10 ^3/uL Lymphocytes # (Auto) 1.1 0.4-5.4 10 ^3/uL Monocytes # (Auto) 0.4 0-1.3 10 ^3/uL Eosinophils # (Auto) 0.2 0-0.8 10 ^3/uL Basophils # (Auto) 0 0-0.2 10 ^3/uL Nucleated Red Blood Cells 0.1 % Sodium Level 141 136-145 mmol/L Potassium Level 4.5 3.5-5.1 mmol/L Chloride Level 109 H 98-107 mmol/L Carbon Dioxide Level 24 20-31 mmol/L Anion Gap 8 5-15 Blood Urea Nitrogen 20 9-23 mg/dL Creatinine 1.11 0.700-1.30 mg/dL Glomerular Filtration Rate Calc 71 >90 mL/min BUN/Creatinine Ratio 18.0 10.0-20.0 Serum Glucose 91 74-106 mg/dL Calcium Level 8.4 L 8.7-10.4 mg/dL Phosphorus Level 3.2 2.4-5.1 mg/dL Total Bilirubin 0.5 0.2-1.0 mg/dL Aspartate Amino Transferase (AST) 17 13-40 U/L Alanine Aminotransferase (ALT) 13 7-40 U/L Alkaline Phosphatase 82 46-116 U/L Lactate Dehydrogenase 164 120-246 U/L Total Protein 5.9 5.7-8.2 g/dL Albumin 3.6 3.2-4.8 g/dL Parathyroid Hormone (Intact) 67.3 18.4-80.1 pg/mL Urine Color Yellow Yellow Urine Clarity Clear Clear Urine pH 5.5 5.0-9.0 Urine Specific [place] 1.024 1.001-1.035 Urine Protein Negative Negative Urine Ketones Negative Negative Urine Blood Negative Negative /uL Urine Nitrite Negative Negative Urine Bilirubin Negative Negative Urine Urobilinogen Normal Negative mg/dL Urine Leukocyte Esterase Negative Negative /uL Urine RBC 1 0 - 3 /hpf Urine Microscopic WBC 1 0-3 /HPF Urine Squamous Epithelial Cells Few <5 /hpf Urine Bacteria None seen None Seen /hpf Urine Mucus Few None Seen Urine Glucose Normal Normal mg/dL Test 06/21/25 14:07 06/21/25 12:59 Range/Units Troponin I High Sensitivity < 3 L </=54 ng/L Iron Level 76 65-175 ug/dL Total Iron Binding Capacity 287 250-425 ug/dL Percent Iron Saturation 26.5 20-55 % Ferritin 55.6 22-322 ng/mL B-Type Natriuretic Peptide 103.29 0-100 pg/mL Triglycerides Level 112 < 150 mg/dL Cholesterol Level 120 < 200 mg/dL LDL Cholesterol 44 < 100 mg/dL HDL Cholesterol 50 40-59 mg/dL Vitamin B12 Level 454 211-911 pg/mL Vitamin D 25-Hydroxy 28.0 L 30.0-100 ng/mL Thyroid Stimulating Hormone (TSH) 1.24 0.55-4.78 uIU/mL Assessment Normocytic anemia Occult blood positive stool Chronic kidney disease History of coronary artery disease Plan/Recommendation 1. Follow H&H and transfuse 2. Patient will need EGD format and colonoscopy following cardiac clearance 3. I will be signing off to Dr. Christina 4. Consider multifactorial anemia given the patient's chronic renal disease Plan discussed with: Patient BARTOLO KENDALL MD Jun 23, 2025 15:52
[2025-06-24 05:00] VITALS: BP 111/72; PULSE 63; RESP 16; TEMP 97.2; O2SAT 98
[2025-06-24 06:29] LABS: Hematocrit 28.1 % (41.0-53.0); Hemoglobin 9.5 g/dL (13.5-17.5); Mean Corpuscular Hemoglobin 33.4 pg (28.0-32.0); Mean Corpuscular Volume 99.3 fL (80.0-100.0); Nucleated Red Blood Cells % 0.0 %
[2025-06-24 06:46] LABS: Potassium 4.8 mmol/L (3.5-5.1); Sodium 143 mmol/L (136-145)
[2025-06-24 06:47] LABS: Anion Gap 10 (5-15); Carbon Dioxide 24 mmol/L (20-31)
[2025-06-24 06:50] LABS: Calcium 8.5 mg/dL (8.7-10.4); Chloride 109 mmol/L (98-107)
[2025-06-24 06:53] LABS: BUN/Creatinine Ratio 16.4 (10.0-20.0); Blood Urea Nitrogen 20 mg/dL (9-23); Glucose 91 mg/dL (74-106)
--- NOTE | 2025-06-24 08:29 | DVHPNRES ---
Progress Note Date Seen: Jun 24, 2025 Resident Creating Document: RUFINA PATEL RESIDENT Has the PT tested + for MRSA If YES, has PT been informed?: No Medical Necessity Reason Pt with a Central, PICC or Fol: No Subjective Review of Systems Ron Miller is a 74-year old male with past medical history of CAD s/p PTCA, hyperlipidemia who presented to the ED on being recommended by his PCP as he had low hemoglobin level of 7.8. The patient mentions he has had generalized body weakness for 1 week. He denies any weight loss, blood in the stool, dark stools, fever or chills. The patient mentions that he has a recent history of chest pain 1 week back for which he took nitroglycerin which resolved the symptoms. Past medical history: Hyperlipidemia, coronary artery disease Past surgical history: PTCA 5 years ago Social & Personal history: Lives at home with family Smokin pack-year smoking history, quit smoking 20 years back Alcohol: Rare consumption Drugs: Denies Patient seen and examined at bedside. Patient is alert and oriented to time, place person and responding to all questions. Patient mentions he has generalized body weakness. Eyes: No Pain, No Vision change, No Conjunctivae inflammation, No Eyelid inflammation, No Redness ENT: No Ear pain, No Ear discharge, No Nose pain, No Nose discharge, No Nose congestion, No Mouth pain, No Mouth swelling, No Throat pain, No Throat swelling Cardiovascular: No Chest Pain, No Palpitations, No Orthopnea, No Paroxysmal No Dyspnea, No Edema, No Lt Headedness Respiratory: No Cough, No Dry, No Shortness of breath, No SOB with exertion, No Wheezing, No Hemoptysis, No Pleuritic Pain, No Sputum Gastrointestinal: No Nausea, No Vomiting, No Abdominal Pain, No Diarrhea, No Constipation, No Melena, No Hematochezia Genitourinary: No Dysuria, No Frequency, No Incontinence, No Hematuria, No Retention Allergies: Coded Allergies: NO KNOWN ALLERGIES (Unverified , 06/21/25) 06/22/25- Patient was seen at bedside today. Labs and charts were reviewed. His hemoglobin today was 8.8. Creatinine improved from 1.36 yesterday to 1.34 today. We will continue to give NS at 60 mL/hour and monitor hemoglobin tomorrow morning. Possible discharge for tomorrow was discussed with the patient. 06/23/25-Patient seen and examined at bedside. Patient denies fever/chills, abdominal tenderness, vomiting or any possible source of bleeding at this time. Hemoglobin has been stable throughout hospitalization, today is 9.2. Iron panel and ferritin in the normal range but stool occult test came back positive. GI was consulted for possible colonoscopy since the patient has been having acute on chronic anemia. GI consult was placed. Otherwise patient is grossly well overall. 06/24/25- patient was seen and examined at bedside. Patient denies any abdominal pain vomiting or diarrhea. Hemoglobin today is 9.5. Patient underwent EGD today and was found to have mild gastritis and gastropathy otherwise normal examination up to the 2nd part of the duodenum with no active bleeding but increased oozing from biopsy sites and scope pressure areas. Patient was put on Protonix 40 mg b.i.d. IV and Carafate 1 g p.o. 4 times daily, and clear liquid diet. Patient was recommended colonoscopy for evaluation, tentatively on 06/26/2025. Objective vital signs Vital Sign Date Time Temp Pulse Resp B/P (MAP) Pulse Ox O2 Delivery O2 Flow Rate FiO2 06/24/25 05:00 97.2 63 16 111/72 (85) 98 97.2 Total Intake and Output 06/23/25 06/23/25 06/24/25 15:00 23:00 07:00 Intake Total 240 ml 560 ml 500 ml Balance 240 ml 560 ml 500 ml medications Current Medications Medications Dose Ordered Sig/Nannette Route Start Time Stop Time Status Last Admin Dose Admin Acetaminophen 325 mg Q4HP PRN PO 06/21/25 16:00 Nitroglycerin 0.4 mg Q5MINP PRN SL 06/21/25 16:00 Morphine Sulfate 2 mg Q30M PRN IV 06/21/25 16:00 Sodium Chloride 1,000 ml @ 60 mls/hr [id number] IV 06/21/25 16:15 06/23/25 18:34 60 MLS/HR Aspirin 81 mg DAILY PO 06/22/25 10:00 06/23/25 09:12 81 MG Clopidogrel Bisulfate 75 mg DAILY PO 06/22/25 10:00 06/23/25 09:11 75 MG Atorvastatin Calcium 40 mg HS PO 06/21/25 22:00 06/23/25 21:16 40 MG Ergocalciferol 50,000 unit Q7D PO 06/22/25 08:30 06/22/25 10:21 50,000 UNIT Docusate Sodium 100 mg BIDPRN PRN PO 06/22/25 21:00 06/23/25 09:12 100 MG Examination General Appearance: Cooperative. Well developed. Well nourished. NAD Head Exam: Normal inspection,pale conjunctivae Neck Exam: Normal inspection. Non-tender. Normal alignment Pulmonary/Respiratory: Chest non-tender. Clear bilateral breath sounds, no crackles, no wheezing. Cardiovascular/Chest: Regular rate and rhythm. No murmurs. No JVD. Peripheral Pulses: 2+ Radial (R). 2+ Radial (L). 2+ Pedal (R). 2+ Pedal (L) Abdominal Exam: Normal bowel sounds. Soft. normal abdomen, no visible veins, Nontender. No hepatospenomegaly. No masses Ankle Exam: Negative ankle edema Lower extremities: Negative lower extremity edema Neuro/Mental Status: A&O x4. Coherent. Thoughts/Psych: Normal thought pattern. Appropriate mood and affect. Good judgement and insight Skin Exam: Normal inspection. Normal color. Warm. Dry laboratory and microbiology Laboratory Tests 06/24/25 04:48 Test 06/24/25 04:48 Range/Units Serum Glucose 91 74-106 mg/dL Labs and/or images reviewed: Labs reviewed by me, Image(s) reviewed by me Problem List/Assessment/Plan Problem List/Assessment/Plan Acute normocytic anemia -Hb today was 9.5 -iron panel, ferritin are within normal limits -monitor hemoglobin -Stool occult came back positive -GI consult placed -EGD done on 06/24/25-mild gastritis and gastropathy otherwise normal examination up to the 2nd part of the duodenum with no active bleeding but increased oozing from biopsy sites and scope pressure areas. -started on protonix 40mg iv bid and carafate 1gm po qid SHELLEY, likely due to VMN -NS given at 60ml/hr -Cr improving -avoid nephrotoxic agents -monitor BMP History of Coronary artery disease s/p PTCA -continue aspirin 81mg po daily -continue plavix 75mg po daily -Echo LVEF 65% normal rv function left atrium enlarged moderately no severe valve abnormalities noted mild to moderate tricupsid regurg Hyperlipidemia -continue lipitor 40mg po hs Vitamin D deficiciency -given Vitamin D 50,000 units daily for 1 week DVT prophylaxis: lovenox 40mg sc daily Goals of care discussed with the patient at bedside for 21 min, FULL CODE Plan discussed with Dr Perkins Plan discussed with: Patient Dietary Evaluation Review Comments: 1) Advance to cardiac diet when medically feasible 2) Follow-up with gastroenterology and cardiology 3) Continue to monitor I&O, labs, and skin integrity Expected Outcomes/Goals: 1) labs to improve 2) diet to advance 3) f/u in 3-5 days Date of Service: Jun 24, 2025 Billing Provider: AMANDA PERKINS MD Common Visit Codes: [id number] INP/OBS CARE(HIGH) RUFINA PATEL RESIDENT Jun 24, 2025 08:29 AMANDA PERKINS MD Jun 24, 2025 21:37
[2025-06-24 09:00] VITALS: BP 125/72; PULSE 60; RESP 15; TEMP 98.2; O2SAT 100
[2025-06-24 13:00] VITALS: BP 95/64; PULSE 57; RESP 16; TEMP 98.4; O2SAT 98
[2025-06-24] MEDS ORDERED: LIDOCAINE VISCOUS 2% 15ML UD ONE (14:53)
[2025-06-24] MEDS ORDERED: MIDAZOLAM HCL 2MG/2ML 2ml VIAL (1mg/ml) ONE (15:00)
[2025-06-24] MEDS ORDERED: fentaNYL CITRATE 100 MCG/2 ML VL ONE (15:00)
[2025-06-24] MEDS ORDERED: PROPOFOL 10 MG/ML 20 ML IV ONE (15:01)
[2025-06-24 15:11] LABS: INR 1.0 (0.9-1.15); Partial Thromboplastin Time 27.9 SEC (24.5-34.5); Prothrombin Time 10.6 sec (9.3-11.8)
[2025-06-24 15:15] VITALS: PULSE 67; RESP 13; O2SAT 100
--- NOTE | 2025-06-24 15:24 | DVHOP2 ---
Operative Report DATE OF OPERATION: 06/24/25 PROCEDURE: Upper Endoscopy with biopsy. PREOPERATIVE INDICATION: The patient is a 74 -year-old male undergoing endoscopy for anemia microcytic POSTOPERATIVE DIAGNOSES: 1. Mild gastritis and gastropathy otherwise normal examination up to the 2nd and part of the duodenum; no active bleeding but increase oozing from biopsy sites and scope pressure areas PROCEDURE PERFORMED BY: Zeinab Christina GI NURSE: Germaine SCOPE: Olympus videoendoscope. ASA CLASS: 3 PREOPERATIVE MEDICATIONS: Dr. Radha Bonilla PROCEDURE IN DETAIL: After obtaining an informed consent, the patient was placed on left lateral decubitus position. The patient was then sedated with the above medications. A bite block was placed between his teeth. The endoscope was then passed through the oropharynx, into the esophagus, and through the stomach and pylorus up to the second and third part of the duodenum. The endoscope was then withdrawn. The 2nd and 3rd part of the duodenum and the duodenal bulb were normal. Duodenal biopsies were obtained The pre-pyloric area antrum and body showed mild gastritis. Gastric biopsies were obtained. On retroflexion the fundus and cardia were normal except for mild gastritis with some superficial erosions. Increase oozing was noted from scope pressure sites and biopsy sites. The endoscope was then withdrawn into distal esophagus where the patient had a 1 cm sliding-type hiatal hernia with no significant esophagitis The remaining distal and proximal esophagus were unremarkable The patient tolerated the procedure well without difficulty. COMPLICATIONS : None SPECIMENS: Duodenal biopsies Gastric biopsies DISPOSITION: Transfer back to the floor Stable PLAN: 1. Await for biopsy result 2. Will place pt on Protonix 40 mg bid IV 3. Carafate 1 g p.o. 4 times a day 4. DC aspirin NSAIDs Plavix at this time 5. Patient will likely need a colonoscopy for evaluation, hold Plavix and I will tentatively plan for 06/26/2025 6. If the patient is discharged prior to that then arrange this colonoscopy as an outpatient ZEINAB CHRISTINA MD Jun 24, 2025 15:24
[2025-06-24 17:06] VITALS: BP 142/75; PULSE 60; RESP 16; TEMP 98.6; O2SAT 98
[2025-06-24] MEDS: SUCRALFATE 1 GM/10 ML ORAL SUSP PO SCH (17:29)
[2025-06-24 21:00] VITALS: BP 132/80; PULSE 58; RESP 18; TEMP 98; O2SAT 99
[2025-06-24] MEDS: PANTOPRAZOLE 40 MG/10 ML VIAL INJ IV SCH (21:17)
[2025-06-25 01:00] VITALS: BP 106/64; PULSE 66; RESP 18; TEMP 98.4; O2SAT 97
[2025-06-25 05:00] VITALS: BP 110/60; PULSE 64; RESP 18; TEMP 98; O2SAT 97
[2025-06-25 07:26] LABS: Nucleated Red Blood Cells % 0.1 %
[2025-06-25 07:28] LABS: Hematocrit 29.1 % (41.0-53.0); Hemoglobin 9.9 g/dL (13.5-17.5); Mean Corpuscular Hemoglobin 33.4 pg (28.0-32.0); Mean Corpuscular Volume 97.8 fL (80.0-100.0)
[2025-06-25 07:40] LABS: Anion Gap 11 (5-15); Carbon Dioxide 22 mmol/L (20-31); Potassium 4.2 mmol/L (3.5-5.1); Sodium 143 mmol/L (136-145)
[2025-06-25 07:43] LABS: Calcium 8.4 mg/dL (8.7-10.4); Chloride 110 mmol/L (98-107)
[2025-06-25 07:46] LABS: BUN/Creatinine Ratio 15.9 (10.0-20.0); Blood Urea Nitrogen 17 mg/dL (9-23)
[2025-06-25 07:51] LABS: Glucose 110 mg/dL (74-106)
[2025-06-25 09:00] VITALS: BP 115/59; PULSE 73; RESP 16; TEMP 97.6; O2SAT 92
--- NOTE | 2025-06-25 11:54 | DVHPNRES ---
Progress Note Date Seen: Jun 25, 2025 Resident Creating Document: RUFINA PATEL RESIDENT Has the PT tested + for MRSA If YES, has PT been informed?: No Medical Necessity Reason Pt with a Central, PICC or Fol: No Subjective Review of Systems Ron Miller is a 74-year old male with past medical history of CAD s/p PTCA, hyperlipidemia who presented to the ED on being recommended by his PCP as he had low hemoglobin level of 7.8. The patient mentions he has had generalized body weakness for 1 week. He denies any weight loss, blood in the stool, dark stools, fever or chills. The patient mentions that he has a recent history of chest pain 1 week back for which he took nitroglycerin which resolved the symptoms. Past medical history: Hyperlipidemia, coronary artery disease Past surgical history: PTCA 5 years ago Social & Personal history: Lives at home with family Smokin pack-year smoking history, quit smoking 20 years back Alcohol: Rare consumption Drugs: Denies Patient seen and examined at bedside. Patient is alert and oriented to time, place person and responding to all questions. Patient mentions he has generalized body weakness. Eyes: No Pain, No Vision change, No Conjunctivae inflammation, No Eyelid inflammation, No Redness ENT: No Ear pain, No Ear discharge, No Nose pain, No Nose discharge, No Nose congestion, No Mouth pain, No Mouth swelling, No Throat pain, No Throat swelling Cardiovascular: No Chest Pain, No Palpitations, No Orthopnea, No Paroxysmal No Dyspnea, No Edema, No Lt Headedness Respiratory: No Cough, No Dry, No Shortness of breath, No SOB with exertion, No Wheezing, No Hemoptysis, No Pleuritic Pain, No Sputum Gastrointestinal: No Nausea, No Vomiting, No Abdominal Pain, No Diarrhea, No Constipation, No Melena, No Hematochezia Genitourinary: No Dysuria, No Frequency, No Incontinence, No Hematuria, No Retention Allergies: Coded Allergies: NO KNOWN ALLERGIES (Unverified , 06/21/25) 06/22/25- Patient was seen at bedside today. Labs and charts were reviewed. His hemoglobin today was 8.8. Creatinine improved from 1.36 yesterday to 1.34 today. We will continue to give NS at 60 mL/hour and monitor hemoglobin tomorrow morning. Possible discharge for tomorrow was discussed with the patient. 06/23/25-Patient seen and examined at bedside. Patient denies fever/chills, abdominal tenderness, vomiting or any possible source of bleeding at this time. Hemoglobin has been stable throughout hospitalization, today is 9.2. Iron panel and ferritin in the normal range but stool occult test came back positive. GI was consulted for possible colonoscopy since the patient has been having acute on chronic anemia. GI consult was placed. Otherwise patient is grossly well overall. 06/24/25- patient was seen and examined at bedside. Patient denies any abdominal pain vomiting or diarrhea. Hemoglobin today is 9.5. Patient underwent EGD today and was found to have mild gastritis and gastropathy otherwise normal examination up to the 2nd part of the duodenum with no active bleeding but increased oozing from biopsy sites and scope pressure areas. Patient was put on Protonix 40 mg b.i.d. IV and Carafate 1 g p.o. 4 times daily, and clear liquid diet. Patient was recommended colonoscopy for evaluation, tentatively on 06/26/2025. 06/25/25- The patient was seen at bedside today. Patient denies any abdominal pain. Hemoglobin today was 9.9. We will continue with the same management. Patient is scheduled for colonoscopy on 06/26/25. Patient will be given bowel prep today and be kept NPO after midnight. Objective vital signs Vital Sign Date Time Temp Pulse Resp B/P (MAP) Pulse Ox O2 Delivery O2 Flow Rate FiO2 06/25/25 05:00 98.0 64 18 110/60 (77) 97 98.0 06/24/25 15:15 Room Air 0 100 Total Intake and Output 06/24/25 06/24/25 06/25/25 15:00 23:00 07:00 Intake Total 10 ml 1200 ml 400 ml Balance 10 ml 1200 ml 400 ml medications Current Medications Medications Dose Ordered Sig/Nannette Route Start Time Stop Time Status Last Admin Dose Admin Acetaminophen 325 mg Q4HP PRN PO 06/21/25 16:00 Nitroglycerin 0.4 mg Q5MINP PRN SL 06/21/25 16:00 Morphine Sulfate 2 mg Q30M PRN IV 06/21/25 16:00 Sodium Chloride 1,000 ml @ 60 mls/hr [id number] IV 06/21/25 16:15 06/25/25 10:12 60 MLS/HR Atorvastatin Calcium 40 mg HS PO 06/21/25 22:00 06/24/25 21:18 40 MG Ergocalciferol 50,000 unit Q7D PO 06/22/25 08:30 06/22/25 10:21 50,000 UNIT Docusate Sodium 100 mg BIDPRN PRN PO 06/22/25 21:00 06/23/25 09:12 100 MG Pantoprazole Sodium 40 mg BID IV 06/24/25 22:00 06/25/25 10:12 40 MG Sucralfate 1 gm QID@0600,1130,1700,2200 PO 06/24/25 17:00 06/25/25 11:41 1 GM Examination General Appearance: Cooperative. Well developed. Well nourished. NAD Head Exam: Normal inspection,pale conjunctivae Neck Exam: Normal inspection. Non-tender. Normal alignment Pulmonary/Respiratory: Chest non-tender. Clear bilateral breath sounds, no crackles, no wheezing. Cardiovascular/Chest: Regular rate and rhythm. No murmurs. No JVD. Peripheral Pulses: 2+ Radial (R). 2+ Radial (L). 2+ Pedal (R). 2+ Pedal (L) Abdominal Exam: Normal bowel sounds. Soft. normal abdomen, no visible veins, Nontender. No hepatospenomegaly. No masses Ankle Exam: Negative ankle edema Lower extremities: Negative lower extremity edema Neuro/Mental Status: A&O x4. Coherent. Thoughts/Psych: Normal thought pattern. Appropriate mood and affect. Good judgement and insight Skin Exam: Normal inspection. Normal color. Warm. Dry laboratory and microbiology Laboratory Tests 06/25/25 05:10 Test 06/25/25 05:10 Range/Units Serum Glucose 110 H 74-106 mg/dL Labs and/or images reviewed: Labs reviewed by me, Image(s) reviewed by me Problem List/Assessment/Plan Problem List/Assessment/Plan Acute normocytic anemia -Hb today was 9.9 -iron panel, ferritin are within normal limits -monitor hemoglobin -Stool occult came back positive -EGD done on 06/24/25-mild gastritis and gastropathy otherwise normal examination up to the 2nd part of the duodenum with no active bleeding but increased oozing from biopsy sites and scope pressure areas. -started on protonix 40mg iv bid and carafate 1gm po qid -scheduled for colonoscopy on 06/26/25 -NPO after midnight SHELLEY, likely due to VMN -NS given at 60ml/hr -Cr improving,1.07 today -avoid nephrotoxic agents -monitor BMP History of Coronary artery disease s/p PTCA -continue aspirin 81mg po daily -continue plavix 75mg po daily -Echo LVEF 65% normal rv function left atrium enlarged moderately no severe valve abnormalities noted mild to moderate tricupsid regurg Hyperlipidemia -continue lipitor 40mg po hs Vitamin D deficiciency -given Vitamin D 50,000 units daily for 1 week DVT prophylaxis: lovenox 40mg sc daily Goals of care discussed with the patient at bedside for 21 min, FULL CODE Plan discussed with Dr Perkins Plan discussed with: Patient Dietary Evaluation Review Comments: 1) Advance to cardiac diet when medically feasible 2) Follow-up with gastroenterology and cardiology 3) Continue to monitor I&O, labs, and skin integrity Expected Outcomes/Goals: 1) labs to improve 2) diet to advance 3) f/u in 3-5 days Date of Service: Jun 25, 2025 Billing Provider: AMANDA PERKINS MD Common Visit Codes: [id number] INP/OBS CARE(HIGH) Date of Service: Jun 25, 2025 Billing Provider: AMANDA PERKINS MD Common Visit Codes: [id number] INP/OBS CARE(HIGH) RUFINA PATEL RESIDENT Jun 25, 2025 11:54 AMANDA PERKINS MD Jun 25, 2025 18:02
[2025-06-25 13:00] VITALS: BP 99/64; PULSE 68; RESP 20; TEMP 98.1; O2SAT 99
[2025-06-25] MEDS: GOLYTELY 4L KIT PO ONE (16:15)
[2025-06-25 16:53] VITALS: BP 111/63; PULSE 57; RESP 20; TEMP 98; O2SAT 98
--- NOTE | 2025-06-25 20:19 | DVHPN2 ---
Progress Note - Dictate Date Seen: Jun 25, 2025 Has the PT tested + for MRSA If YES, has PT been informed?: No Medical Necessity Reason Pt with a Central, PICC or Fol: No Subjective Patient seen at bedside, ambulating comfortably Plavix and aspirin have been put on hold EGD showed mild gastritis vital signs Vital Sign Date Time Temp Pulse Resp B/P (MAP) Pulse Ox O2 Delivery O2 Flow Rate FiO2 06/25/25 16:53 98.0 57 20 111/63 (79) 98 98.0 06/24/25 15:15 Room Air 0 100 Total Intake and Output 06/24/25 06/24/25 06/25/25 15:00 23:00 07:00 Intake Total 10 ml 1200 ml 400 ml Balance 10 ml 1200 ml 400 ml medications Current Medications Medications Dose Ordered Sig/Nannette Route Start Time Stop Time Status Last Admin Dose Admin Acetaminophen 325 mg Q4HP PRN PO 06/21/25 16:00 Nitroglycerin 0.4 mg Q5MINP PRN SL 06/21/25 16:00 Morphine Sulfate 2 mg Q30M PRN IV 06/21/25 16:00 Sodium Chloride 1,000 ml @ 60 mls/hr [id number] IV 06/21/25 16:15 06/25/25 10:12 60 MLS/HR Atorvastatin Calcium 40 mg HS PO 06/21/25 22:00 06/24/25 21:18 40 MG Ergocalciferol 50,000 unit Q7D PO 06/22/25 08:30 06/22/25 10:21 50,000 UNIT Docusate Sodium 100 mg BIDPRN PRN PO 06/22/25 21:00 06/23/25 09:12 100 MG Pantoprazole Sodium 40 mg BID IV 06/24/25 22:00 06/25/25 10:12 40 MG Sucralfate 1 gm QID@0600,1130,1700,2200 PO 06/24/25 17:00 06/25/25 16:20 1 GM objective General Appearance: Cooperative. Well developed. Well nourished. NAD Head Exam: Normal inspection,pale conjunctivae Neck Exam: Normal inspection. Non-tender. Normal alignment Pulmonary/Respiratory: Chest non-tender. Clear bilateral breath sounds, no crackles, no wheezing. Cardiovascular/Chest: Regular rate and rhythm. No murmurs. No JVD. Peripheral Pulses: 2+ Radial (R). 2+ Radial (L). 2+ Pedal (R). 2+ Pedal (L) Abdominal Exam: Normal bowel sounds. Soft. normal abdomen, no visible veins, Nontender. No hepatospenomegaly. No masses Ankle Exam: Negative ankle edema Lower extremities: Negative lower extremity edema Neuro/Mental Status: A&O x4. Coherent. Thoughts/Psych: Normal thought pattern. Appropriate mood and affect. Good judgement and insight Skin Exam: Normal inspection. Normal color. Warm. Dry laboratory and microbiology Laboratory Tests 06/25/25 05:10 Test 06/25/25 05:10 Range/Units Serum Glucose 110 H 74-106 mg/dL Problems(with codes): (1) Gastritis (2) Anemia (3) Positive occult stool blood test Prognosis Plan Continue to hold aspirin and Plavix Bowel prep tonight Patient is scheduled for colonoscopy tomorrow Risks and alternatives were explained Dietary Evaluation Review Comments: 1) Advance to cardiac diet when medically feasible 2) Follow-up with gastroenterology and cardiology 3) Continue to monitor I&O, labs, and skin integrity Expected Outcomes/Goals: 1) labs to improve 2) diet to advance 3) f/u in 3-5 days Plan discussed with: Patient ZEINAB HUNT MD Jun 25, 2025 20:19
[2025-06-25 21:00] VITALS: BP 135/67; PULSE 61; RESP 18; TEMP 98.7; O2SAT 96
[2025-06-26] VITALS (8 sets, daily range): BP systolic 102–139; BP diastolic 50–85; PULSE 56–87; RESP 12–18; TEMP 36.4; O2SAT 94–100
[2025-06-26] MEDS: MAGNESIUM CITRATE SOLUTION 300 ML BTL PO ONE (05:26)
[2025-06-26] MEDS: GOLYTELY 4L KIT PO ONE (05:27)
[2025-06-26 06:26] LABS: Hematocrit 26.4 % (41.0-53.0); Hemoglobin 9.0 g/dL (13.5-17.5); Mean Corpuscular Hemoglobin 33.5 pg (28.0-32.0); Mean Corpuscular Volume 97.9 fL (80.0-100.0); Nucleated Red Blood Cells % 0.0 %
--- NOTE | 2025-06-26 06:59 | ECG ---
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
[2025-06-26] MEDS ORDERED: LIDOCAINE 1% INJ PF 5ML AMP ONE (12:16)
[2025-06-26] MEDS ORDERED: PROPOFOL 10 MG/ML 20 ML IV ONE (12:16)
[2025-06-26] MEDS ORDERED: ONDANSETRON HCL 4 MG/2 ML VIAL IV PRN (12:45)
--- NOTE | 2025-06-26 12:51 | DVHOP2 ---
Operative Report DATE OF OPERATION: 06/26/25 PROCEDURE: Diagnostic Colonoscopy. PREOPERATIVE INDICATION: The patient is a 74 -year-old male undergoing colonoscopy for anemia POSTOPERATIVE DIAGNOSES: 1. Trace to 1+ internal hemorrhoids and no active bleeding no fresh or old blood in the lower GI tract 2. Mild tortuosity of the colon at the splenic flexure otherwise completely normal colonoscopy examination up to the cecum and terminal ileum PROCEDURE PERFORMED BY: Zeinab Christina M.D. SCOPE: Olympus videocolonoscope. ASA CLASS: 2 PREOPERATIVE MEDICATIONS: Dr. Eliu Bonilla PROCEDURE IN DETAIL: After obtaining an informed consent, the patient was placed on left lateral decubitus position. He was then sedated with the above medications. A rectal examination was performed that was normal. The colonoscope was then passed through the anus into the rectosigmoid and through the descending, transverse, and ascending colon up to the cecum with visualization of the appendiceal orifice, base of the cecum and the ileocecal valve. The colonoscope was then withdrawn. The distal 5-10 cm of the terminal ileum were normal No polyps or masses were seen. There was no colitis. No diverticular disease. There no fresh or old blood in the GI tract and patient had a good bowel prep On retroflexion and straight on view the patient had trace to 1+ internal hemorrhoids The patient tolerated the procedure well without difficulty. WITHDRAWAL TIME: 6 minutes QUALITY OF THE PREP: [place] Bowel Prep score: 9. COMPLICATIONS : None SPECIMENS: None DISPOSITION: Transfer back to the floor Stable PLAN: 1. Repeat colonoscopy in 10 years 2. Resume GI soft diet advance as tolerated 3. Outpatient follow up with PCP to review results and discuss further management ZEINAB CHRISTINA MD Jun 26, 2025 12:50
[2025-06-26] MEDS ORDERED: ATOR40TA52 PO (15:32)
[2025-06-26] MEDS ORDERED: SUCR1SUS5 PO (15:32)
[2025-06-26] MEDS ORDERED: PANT40TA2 PO (15:32)
[2025-06-26] MEDS ORDERED: ERGO1CAP23 PO (15:32)
[2025-06-26] MEDS ORDERED: FER325T PO (15:32)
--- NOTE | 2025-06-26 16:25 | DVHDSRES ---
Discharge Summary Date of Admission Resident Creating Document: RUFINA PATEL RESIDENT Jun 21, 2025 at 15:56 Date of Discharge: Jun 26, 2025 Admitting Diagnosis Acute normocytic anemia Labs/Diagnostic Data: Laboratory Results Test 06/26/25 05:05 06/25/25 05:10 06/24/25 14:40 06/23/25 11:15 White Blood Count 6.2 10^3/uL (4.4-10.8) Red Blood Count 2.69 10^6/uL (4.5-5.90) Hemoglobin 9.0 g/dL (13.5-17.5) Hematocrit 26.4 % (41.0-53.0) Mean Corpuscular Volume 97.9 fL (80.0-100.0) Mean Corpuscular Hemoglobin 33.5 pg (28.0-32.0) Mean Corpuscular Hemoglobin Concent 34.2 g/dL (32.0-36.0) Red Cell Distribution Width 15.2 % (11.8-14.3) Platelet Count 215 10^3/uL (140-450) Mean Platelet Volume 7.1 fL (6.9-10.8) Neutrophils (%) (Auto) 67.5 % (37.0-80.0) Lymphocytes (%) (Auto) 25.4 % (10.0-50.0) Monocytes (%) (Auto) 6.1 % (0.0-12.0) Eosinophils (%) (Auto) 0.5 % (0.0-7.0) Basophils (%) (Auto) 0.5 % (0.0-2.0) Neutrophils # (Auto) 4.2 10 ^3/uL (1.6-8.6) Lymphocytes # (Auto) 1.6 10 ^3/uL (0.4-5.4) Monocytes # (Auto) 0.4 10 ^3/uL (0-1.3) Eosinophils # (Auto) 0 10 ^3/uL (0-0.8) Basophils # (Auto) 0 10 ^3/uL (0-0.2) Nucleated Red Blood Cells 0.0 % Sodium Level 143 mmol/L (136-145) Potassium Level 4.2 mmol/L (3.5-5.1) Chloride Level 110 mmol/L (98-107) Carbon Dioxide Level 22 mmol/L (20-31) Anion Gap 11 (5-15) Blood Urea Nitrogen 17 mg/dL (9-23) Creatinine 1.07 mg/dL (0.700-1.30) Glomerular Filtration Rate Calc 74 mL/min (>90) BUN/Creatinine Ratio 15.9 (10.0-20.0) Serum Glucose 110 mg/dL (74-106) Calcium Level 8.4 mg/dL (8.7-10.4) Prothrombin Time 10.6 sec (9.3-11.8) Prothrombin Time INR 1.00 (0.9-1.15) Activated Partial Thromboplast Time 27.9 SEC (24.5-34.5) Stool Occult Blood Positive (Negative) Stool Occult Blood Sample #3 (Negative) Test 06/22/25 05:07 06/21/25 16:14 06/21/25 14:07 06/21/25 12:59 Haptoglobin 161 mg/dL (34-355) Phosphorus Level 3.2 mg/dL (2.4-5.1) Total Bilirubin 0.5 mg/dL (0.2-1.0) Aspartate Amino Transferase (AST) 17 U/L (13-40) Alanine Aminotransferase (ALT) 13 U/L (7-40) Alkaline Phosphatase 82 U/L (46-116) Lactate Dehydrogenase 164 U/L (120-246) Total Protein 5.9 g/dL (5.7-8.2) Albumin 3.6 g/dL (3.2-4.8) Parathyroid Hormone (Intact) 67.3 pg/mL (18.4-80.1) Urine Color Yellow (Yellow) Urine Clarity Clear (Clear) Urine pH 5.5 (5.0-9.0) Urine Specific [place] 1.024 (1.001-1.035) Urine Protein Negative (Negative) Urine Ketones Negative (Negative) Urine Blood Negative /uL (Negative) Urine Nitrite Negative (Negative) Urine Bilirubin Negative (Negative) Urine Urobilinogen Normal mg/dL (Negative) Urine Leukocyte Esterase Negative /uL (Negative) Urine RBC 1 /hpf (0 - 3) Urine Microscopic WBC 1 /HPF (0-3) Urine Squamous Epithelial Cells Few /hpf (<5) Urine Bacteria None seen /hpf (None Seen) Urine Mucus Few (None Seen) Urine Glucose Normal mg/dL (Normal) Troponin I High Sensitivity < 3 ng/L (</=54) Iron Level 76 ug/dL (65-175) Total Iron Binding Capacity 287 ug/dL (250-425) Percent Iron Saturation 26.5 % (20-55) Ferritin 55.6 ng/mL (22-322) B-Type Natriuretic Peptide 103.29 pg/mL (0-100) Triglycerides Level 112 mg/dL (< 150) Cholesterol Level 120 mg/dL (< 200) LDL Cholesterol 44 mg/dL (< 100) HDL Cholesterol 50 mg/dL (40-59) Vitamin B12 Level 454 pg/mL (211-911) Vitamin D 25-Hydroxy 28.0 ng/mL (30.0-100) Thyroid Stimulating Hormone (TSH) 1.24 uIU/mL (0.55-4.78) Other Laboratory Tests 06/26/25 05:05 06/25/25 05:10 Brief Hx & Hospital Course: Ron Miller is a 74-year old male with past medical history of CAD s/p PTCA, hyperlipidemia who presented to the ED on being recommended by his PCP as he had low hemoglobin level of 7.8. The patient mentions he has had generalized body weakness for 1 week. He denies any weight loss, blood in the stool, dark stools, fever or chills. The patient mentions that he has a recent history of chest pain 1 week back for which he took nitroglycerin which resolved the symptoms. On admission, hemoglobin was 9.3. We started with NS at 60ml/hr and monitored hemoglobin while the patient was hospitalized. Iron panel and ferritin were in the normal range but stool occult test came back positive. Patient underwent EGD on 06/24/25 and was found to have mild gastritis and gastropathy otherwise normal examination up to the 2nd part of the duodenum with no active bleeding but increased oozing from biopsy sites and scope pressure areas. Patient was put on Protonix 40 mg b.i.d. IV and Carafate 1 g p.o. 4 times daily. Patient underwent colonoscopy on 06/26/25 which showed Trace to 1+ internal hemorrhoids and no active bleeding no fresh or old blood in the lower GI tract and Mild tortuosity of the colon at the splenic flexure otherwise completely normal colonoscopy examination up to the cecum and terminal ileum. All medications and recommendations were thoroughly explained to the patient and he demonstrated understanding of the same. The patient was discharged home in a stable condition on Protonix and Carafate. He was asked to follow-up with PCP in 2-4 weeks. Past medical history: Hyperlipidemia, coronary artery disease Past surgical history: PTCA 5 years ago Social & Personal history: Lives at home with family Smokin pack-year smoking history, quit smoking 20 years back Alcohol: Rare consumption Drugs: Denies Allergies: no known allergies General Appearance: Cooperative. Well developed. Well nourished. NAD Head Exam: Normal inspection,pale conjunctivae Neck Exam: Normal inspection. Non-tender. Normal alignment Pulmonary/Respiratory: Chest non-tender. Clear bilateral breath sounds, no crackles, no wheezing. Cardiovascular/Chest: Regular rate and rhythm. No murmurs. No JVD. Peripheral Pulses: 2+ Radial (R). 2+ Radial (L). 2+ Pedal (R). 2+ Pedal (L) Abdominal Exam: Normal bowel sounds. Soft. normal abdomen, no visible veins, Nontender. No hepatospenomegaly. No masses Ankle Exam: Negative ankle edema Lower extremities: Negative lower extremity edema Neuro/Mental Status: A&O x4. Coherent. Thoughts/Psych: Normal thought pattern. Appropriate mood and affect. Good judgement and insight Skin Exam: Normal inspection. Normal color. Warm. Dry Operations or Procedures 1.PROCEDURE(s): CXR1 - CHEST XRAY 1 VIEW REASON: chest pain ORDER NUMBER(s): [id number], ACCESSION NUMBER(s): [id number] EXAM: XY CHEST XRAY 1 VIEW HISTORY: chest pain TECHNIQUE: 1 view of the chest COMPARISON: None FINDINGS/IMPRESSION: LUNGS: No pleural effusion, consolidation, or pneumothorax. MEDIASTINUM: Unremarkable. BONES: No acute osseous abnormality. OTHER: None. 2.DATE OF OPERATION: 06/24/25 PROCEDURE: Upper Endoscopy with biopsy. PREOPERATIVE INDICATION: The patient is a 74 -year-old male undergoing endoscopy for anemia microcytic POSTOPERATIVE DIAGNOSES: 1. Mild gastritis and gastropathy otherwise normal examination up to the 2nd and part of the duodenum; no active bleeding but increase oozing from biopsy sites and scope pressure areas PROCEDURE PERFORMED BY: Emilia Christina GI NURSE: Germaine SCOPE: Olympus videoendoscope. ASA CLASS: 3 PREOPERATIVE MEDICATIONS: Mac sedation, Dr. Garcia PROCEDURE IN DETAIL: After obtaining an informed consent, the patient was placed on left lateral decubitus position. The patient was then sedated with the above medications. A bite block was placed between his teeth. The endoscope was then passed through the oropharynx, into the esophagus, and through the stomach and pylorus up to the second and third part of the duodenum. The endoscope was then withdrawn. The 2nd and 3rd part of the duodenum and the duodenal bulb were normal. Duodenal biopsies were obtained The pre-pyloric area antrum and body showed mild gastritis. Gastric biopsies were obtained. On retroflexion the fundus and cardia were normal except for mild gastritis with some superficial erosions. Increase oozing was noted from scope pressure sites and biopsy sites. The endoscope was then withdrawn into distal esophagus where the patient had a 1 cm sliding-type hiatal hernia with no significant esophagitis The remaining distal and proximal esophagus were unremarkable The patient tolerated the procedure well without difficulty. COMPLICATIONS : None SPECIMENS: Duodenal biopsies Gastric biopsies DISPOSITION: Transfer back to the floor Stable PLAN: 1. Await for biopsy result 2. Will place pt on Protonix 40 mg bid IV 3. Carafate 1 g p.o. 4 times a day 4. DC aspirin NSAIDs Plavix at this time 5. Patient will likely need a colonoscopy for evaluation, hold Plavix and I will tentatively plan for 06/26/2025 6. If the patient is discharged prior to that then arrange this colonoscopy as an outpatient 3.DATE OF OPERATION: 06/26/25 PROCEDURE: Diagnostic Colonoscopy. PREOPERATIVE INDICATION: The patient is a 74 -year-old male undergoing colonoscopy for anemia POSTOPERATIVE DIAGNOSES: 1. Trace to 1+ internal hemorrhoids and no active bleeding no fresh or old blood in the lower GI tract 2. Mild tortuosity of the colon at the splenic flexure otherwise completely normal colonoscopy examination up to the cecum and terminal ileum PROCEDURE PERFORMED BY: Emilia Christina M.D. SCOPE: Olympus videocolonoscope. ASA CLASS: 2 PREOPERATIVE MEDICATIONS: Dr. Eliu Bonilla PROCEDURE IN DETAIL: After obtaining an informed consent, the patient was placed on left lateral decubitus position. He was then sedated with the above medications. A rectal examination was performed that was normal. The colonoscope was then passed through the anus into the rectosigmoid and through the descending, transverse, and ascending colon up to the cecum with visualization of the appendiceal orifice, base of the cecum and the ileocecal valve. The colonoscope was then withdrawn. The distal 5-10 cm of the terminal ileum were normal No polyps or masses were seen. There was no colitis. No diverticular disease. There no fresh or old blood in the GI tract and patient had a good bowel prep On retroflexion and straight on view the patient had trace to 1+ internal hemorrhoids The patient tolerated the procedure well without difficulty. WITHDRAWAL TIME: 6 minutes QUALITY OF THE PREP: [place] Bowel Prep score: 9. COMPLICATIONS : None SPECIMENS: None DISPOSITION: Transfer back to the floor Stable PLAN: 1. Repeat colonoscopy in 10 years 2. Resume GI soft diet advance as tolerated 3. Outpatient follow up with PCP to review results and discuss further management Condition at Discharge: Fair Final Diagnosis/Problems List Acute normocytic anemia SHELLEY, likely due to VMN History of Coronary artery disease s/p PTCA Hyperlipidemia Vitamin D deficiciency Discharge Disposition: Home Discharge Instruct/Medications Diet: Cardiac 2g Na,low cholest Activity: No Restrictions, As Tolerated Follow Up/Referral: follow up with PCP in 1-2 weeks Medications: Sucralfate 1gm po bid Protonix 40mg po daily Scheduled Ergocalciferol (Vitamin D 07159 Unit), 50,000 UNIT PO weekly Ferrous Sulfate (Ferrous Sulfate), 1 TAB PO DAILY Pantoprazole Sodium Sesquihydr (Protonix), 40 MG PO DAILY Sucralfate (Carafate), 1 GM OR BID Scheduled PRN Atorvastatin Calcium (Atorvastatin Calcium), 1 TAB PO QHSP PRN Discharge Statement: "Patient was advised to return to the ER or call 911 if any headaches, dizziness, shortness of breath, chest pain, abdominal pain, bleeding, fevers, or worsening of medical condition. Patient was counseled about treatment plan, medications, possible side effects, patientverbalized understanding. All questions were answered to the best of my ability. This discharge took greater then 30 minutes in planning, reviewing documentation, counseling the patient, and discussing with other team members." ASSESSMENT ASSESSMENT Assessment Acute normocytic anemia [place], likely due to VMN History of Coronary artery disease s/p PTCA Hyperlipidemia Vitamin D deficiciency Date of Service: Jun 26, 2025 Billing Provider: AMANDA REYNOLDS MD Common Visit Codes: 68362-PSO/OBS DISCH DAY >30min SIBIA,HARNOOR MACE RESIDENT Jun 26, 2025 16:25 NIKA SOLIS RESIDENT Jun 26, 2025 16:49 AMANDA REYNOLDS MD Jun 26, 2025 22:55
[2025-06-26] MEDS ORDERED: SUCR1TAB31 OR (17:34)
== END 2025-06-26 17:50 | disposition home or self-care (01) | DRG 391 ==
LOC: ER 12:16 → OVERFLOW 15:56 → WEST WING 17:47
PROVIDERS: ADMIT Internal Medicine; ATTEND Internal Medicine
PROC: 0DB68ZX Excision of Stomach, Via Natural or Artificial Opening Endoscopic, Diagnostic (ICD-10-PCS; 2025-06-24)
PROC: 0DB98ZX Excision of Duodenum, Via Natural or Artificial Opening Endoscopic, Diagnostic (ICD-10-PCS; principal; 2025-06-24 14:58)
PROC: 0DJD8ZZ Inspection of Lower Intestinal Tract, Via Natural or Artificial Opening Endoscopic (ICD-10-PCS; 2025-06-26)
DX: K29.70 Gastritis, unspecified, without bleeding (principal); N17.0 Acute kidney failure with tubular necrosis; K64.8 Other hemorrhoids; D64.9 Anemia, unspecified; K31.9 Disease of stomach and duodenum, unspecified; K44.9 Diaphragmatic hernia without obstruction or gangrene; E78.5 Hyperlipidemia, unspecified; E55.9 Vitamin D deficiency, unspecified; N18.9 Chronic kidney disease, unspecified; R19.5 Other fecal abnormalities; I25.10 Atherosclerotic heart disease of native coronary artery without angina pectoris; Z98.61 Coronary angioplasty status; Z87.891 Personal history of nicotine dependence; Z79.82 Long term (current) use of aspirin; Z79.02 Long term (current) use of antithrombotics/antiplatelets
CPT/HCPCS: 36415; 71045; 80048; 80053; 80061; 81001; 82270; 82306; 82607; 82728; 83010; 83540; 83550; 83615; 83880; 83970; 84100; 84443; 84484; 85025; 85610; 85730; 86850; 86900; 86901; 93005; 93306; 99291; 99292; G0378; J1100; J2250; J2470; J2704